=== PATIENT | female | born 1990 | race Two or more races ===

== ENCOUNTER 2019-05-04 23:01 | Emergency (ER) | payer BC, OTHER ==
[~2019-05-04] VITALS: Ht 170.2 cm; Wt 65.3 kg
[2019-05-04 23:48] VITALS: BP 96/61
--- NOTE | 2019-05-04 23:48 | NUR ---
AT THE BED SIDE
[2019-05-05] MEDS ORDERED: oxyCODONE/APAP (5/325 MG) 1 UDTAB TABLET ONE (00:18)
[2019-05-05] MEDS ORDERED: oxyCODONE/APAP (5/325 MG) 1 UDTAB TABLET PO ONE (00:30)
== END 2019-05-05 00:45 | disposition home or self-care (01) ==
LOC: ER 23:04
DX: K64.4 Residual hemorrhoidal skin tags (principal); F41.9 Anxiety disorder, unspecified; I47.1 Supraventricular tachycardia